=== PATIENT | female | born 1945 | race Two or more races ===

== ENCOUNTER 2017-07-02 10:04 | Emergency (ER) | payer OTHER, MEDICAID ==
[~2017-07-02] VITALS: Ht 152.4 cm; Wt 52.2 kg
[2017-07-02 10:25] VITALS: BP 116/72
[2017-07-02] MEDS ORDERED: TETANUS-DIPTH-ACEL PERTUSSIS 0.5ML SYRG IM ONE (11:30)
[2017-07-02] MEDS ORDERED: BACITRACIN TOP OINT 1 UD PKG TOP ONE (11:45)
== END 2017-07-02 12:06 | disposition home or self-care (01) ==
LOC: ER 10:04
DX: S71.132A Puncture wound without foreign body, left thigh, initial encounter (principal); W54.0XXA Bitten by dog, initial encounter; Y93.89 Activity, other specified; Y99.8 Other external cause status; Y92.89 Other specified places as the place of occurrence of the external cause; Z23 Encounter for immunization
CPT/HCPCS: 90471; 90715